=== PATIENT | male | born 1955 ===

== ENCOUNTER → 2023-10-20 09:19 | Outpatient (REF) | payer OTHER, SELFPAY | LOC: RAD 09:19 | PROVIDERS: ATTENDING PHYSICIAN Family Medicine | DX: Z00.00 Encounter for general adult medical examination without abnormal findings (principal); R10.13 Epigastric pain | CPT/HCPCS: 74246 ==

== ENCOUNTER → 2025-05-06 07:59 | Outpatient (REF) | payer OTHER, SELFPAY | LOC: RAD 07:59 | PROVIDERS: ATTENDING PHYSICIAN Internal Medicine Nephrology; FAMILY PHYSICIAN Family Medicine | DX: N17.0 Acute kidney failure with tubular necrosis (principal) | CPT/HCPCS: 76770 ==

== ENCOUNTER → 2025-05-18 07:31 | Outpatient (REF) | payer OTHER, SELFPAY | LOC: MRI 3T 07:31 | PROVIDERS: ATTENDING PHYSICIAN Specialist; FAMILY PHYSICIAN Family Medicine | DX: R97.20 Elevated prostate specific antigen [PSA] (principal) | CPT/HCPCS: 72197; A9575 ==